=== PATIENT | female | born 1980 | race Caucasian/White ===

== ENCOUNTER 2024-02-28 06:56 | Day surgery (SDC) | payer OTHER ==
--- NOTE | 2024-02-27 11:49 | HP ---
HISTORY OF PRESENT ILLNESS: Patient is a 43-year-old female, presents with a residual cyst on her neck. It may have had some flare up from time to time. Unsure if she has had attempted removal of this in the past. It looks like it gives her some problems. PAST MEDICAL HISTORY: Hyperlipidemia, hypertension. HOME MEDICATIONS: Atorvastatin, furosemide, losartan, metoprolol, potassium. ALLERGIES: Ceclor. PAST SURGICAL HISTORY: Appendectomy, tubal ligation, hysterectomy. SOCIAL HISTORY: Former smoker. FAMILY HISTORY: Ovarian cancer, COPD, breast cancer, heart disease, stroke. REVIEW OF SYSTEMS: CONSTITUTIONAL: Denies fever or chills. CHEST: Denies shortness of breath. CARDIOVASCULAR: Denies chest pain. ABDOMEN: Denies abdominal pain. PHYSICAL EXAMINATION: GENERAL: No acute distress. CARDIOVASCULAR: Regular rate and rhythm. RESPIRATORY: Nonlabored. No shortness of breath. ABDOMEN: Soft. ASSESSMENT: She has a cyst on her neck. PLAN: Outpatient excision of neck cyst with Dr. Jose Daniel Ramírez. This report was dictated for Dr. Ramírez by Danette Rodriguez NP.
[2024-02-28 07:10] VITALS: RESP 18
[2024-02-28] MEDS ORDERED: Lactated Ringers 1,000 ML IV ONE (07:10)
[2024-02-28] MEDS ORDERED: CLINDAMYCIN-D5W 900 MG/50 ML*** 900 MG/50 ML BAG IV ONE (07:12)
[2024-02-28] MEDS: CLINDAMYCIN-D5W 900 MG/50 ML*** 900 MG/50 ML BAG IV SCH (07:14)
[2024-02-28] MEDS: Lactated Ringers 1,000 ML IV SCH (07:14)
[2024-02-28] MEDS ORDERED: Sensorcaine 0.25% 10 ML ONE (07:17)
[2024-02-28 07:23] LABS: BASOPHIL % 0.5 % (0.1-1.2); Basophil (Absolute #) 0.04 x10^3/uL (0.01-0.08); Eosinophil (Absolute #) 0.25 x10^3/uL (0.04-0.36); Hematocrit 42.9 % (34.1-44.9); Hemoglobin 14.1 g/dL (11.2-15.7); IMMATURE GRAN # 0.01 x10^3u/L (0.001-0.031); IMMATURE GRAN % 0.1 % (0.001-0.429); Lymphocyte (Absolute #) 2.47 x10^3/uL (1.18-3.74); Mean Cell Volume 86.3 fL (79.4-94.8); Mean Corpuscular Hemoglobin 28.4 pg (25.6-32.2); Mean Corpuscular Hgb Concent. 32.9 g/dL (32.2-35.5); Mean Platelet Volume 10.1 fL (9.4-12.3); Monocyte (Absolute #) 0.55 x10^3/uL (0.24-0.86); Monocytes % 6.7 % (4.7-12.5); Neutrophil % 59.7 % (34.0-71.1); Platelet Count 308 x10^3/uL (182-369); Red Blood Count 4.97 x10^6/uL (3.93-5.22); Red Cell Distribution Width 12.5 % (11.7-14.4); White Blood Count 8.2 x10^3/uL (3.98-10.04)
[2024-02-28 07:39] LABS: Calcium 9.1 mg/dL (8.4-10.2); Creatinine 1 0.73 mg/dL (0.52-1.04); EST GLOMERULAR FILTRATION RATE 105.2 ML/MIN; Potassium 4.2 mmol/L (3.5-5.1)
[2024-02-28] MEDS: Reglan 10 MG/2 ML IV ONE (07:55)
[2024-02-28] MEDS: Transderm Scop 1.5MG Patch TOP ONE (07:56)
[2024-02-28] MEDS: Pepcid 20 MG VIAL IV ONE (07:56)
[2024-02-28] MEDS: Toprol-Xl 25MG Tablets PO ONE (08:09)
[2024-02-28] MEDS: Lopressor 25MG Tab PO ONE (08:39)
[2024-02-28] MEDS ORDERED: Zofran 4 MG/2 ML VIAL ONE (10:00)
[2024-02-28] MEDS ORDERED: Quelicin Fliptop 200 MG/10 ML ONE (10:00)
[2024-02-28] MEDS ORDERED: TORAdol 30 mg Injection ONE (10:00)
[2024-02-28] MEDS ORDERED: Xylocaine-Mpf 2% 5 Ml Vial ONE (10:00)
[2024-02-28] MEDS ORDERED: Decadron 4 MG INJ ONE (10:00)
[2024-02-28] MEDS ORDERED: DEXMEDETOMIDINE 80 MCG/20ML-NS IV ONE (10:00)
[2024-02-28] MEDS ORDERED: Versed 2 MG/2 ML Injection ONE (10:00)
[2024-02-28] MEDS ORDERED: SUBLIMAZE 100 MCG/2 ML ONE (10:01)
[2024-02-28] MEDS ORDERED: DIPRIVAN 200 MG/20 ML IV ONE (10:01)
[2024-02-28] MEDS ORDERED: ROBINUL ONE (10:04)
[2024-02-28] MEDS ORDERED: Ephedrine Sulfate 50 MG/ML ONE (10:38)
[2024-02-28] MEDS ORDERED: BACIGUENT 30 GM ONE (10:52)
[2024-02-28 12:22] VITALS: BP 125/83; PULSE 84; TEMP 97.5; O2SAT 94
--- NOTE | 2024-03-03 08:59 | OP ---
SURGERY DATE/TIME: 02/28/2024 [id number] PREOPERATIVE DIAGNOSIS: Cyst right neck 3 cm. POSTOPERATIVE DIAGNOSIS: Cyst right neck 3 cm. PROCEDURE: Excision and closure of 3 cm sebaceous cyst of the right posterior nuchal area. SURGEON: Jose Daniel Ramírez MD ANESTHESIA: General. COMPLICATIONS: None. CONDITION: Stable. DESCRIPTION OF PROCEDURE AND FINDINGS: Patient was taken to surgery, turned left-side down, right-side up. Routine prep and drape. General anesthetic. Marcaine 0.25%. Elliptical incision. The cyst was totally removed. It was 3 cm. It was then approximated with vertical mattress sutures of 3-0 Prolene. Sterile dressing applied. Patient tolerated procedure satisfactorily.
== END 2024-02-28 12:27 | disposition home or self-care (01) ==
LOC: SDC 06:56
PROVIDERS: ATTEND Surgery
DX: L72.0 Epidermal cyst (principal); I10 Essential (primary) hypertension
CPT/HCPCS: 36415; 80048; 85025; 93005; J0330; J1100; J1885; J2250; J2405; J2704; J3010; A9270-GY